=== PATIENT | male | born 1975 ===

== ENCOUNTER 2022-08-20 12:04 | Outpatient (CLI) | payer OTHER | END 2022-08-20 12:05 | disposition home or self-care (01) | LOC: ULT 12:04 | PROVIDERS: ATTEND Family Medicine | DX: N43.3 Hydrocele, unspecified (principal); I86.1 Scrotal varices; N50.89 Other specified disorders of the male genital organs; N50.9 Disorder of male genital organs, unspecified | CPT/HCPCS: 76870; 93976 ==